=== PATIENT | female | born 1935 | race Caucasian/White ===

== ENCOUNTER 2017-01-03 19:57 | Emergency (ER) | payer OTHER ==
[~2017-01-03] VITALS: Ht 152.4 cm; Wt 45.4 kg
[2017-01-03 20:08] VITALS: BP_SYST 117
[2017-01-03] MEDS ORDERED: LORazepam 1 MG TABLET PO ONE (22:00)
[2017-01-03 22:10] VITALS: BP_SYST 117
== END 2017-01-03 22:10 | disposition home or self-care (01) ==
LOC: SED 19:57
DX: G47.00 Insomnia, unspecified (principal); F41.9 Anxiety disorder, unspecified; M54.30 Sciatica, unspecified side
CPT/HCPCS: 99283

== ENCOUNTER 2017-06-14 17:29 | Emergency (ER) | payer OTHER ==
[~2017-06-14] VITALS: Ht 152.4 cm; Wt 50.8 kg
[2017-06-14 17:30] VITALS: BP_SYST 111
[2017-06-14 19:58] VITALS: BP_SYST 114
== END 2017-06-14 19:58 | disposition home or self-care (01) ==
LOC: SED 17:29
DX: T23.212A Burn of second degree of left thumb (nail), initial encounter (principal); F41.9 Anxiety disorder, unspecified; M54.30 Sciatica, unspecified side; X16.XXXA Contact with hot heating appliances, radiators and pipes, initial encounter; Y93.89 Activity, other specified; Y92.89 Other specified places as the place of occurrence of the external cause; Y99.8 Other external cause status
CPT/HCPCS: 99284

== ENCOUNTER 2021-04-29 19:20 | Emergency (ER) | payer OTHER ==
[~2021-04-29] VITALS: Ht 152.4 cm; Wt 45.4 kg
[2021-04-29 19:28] VITALS: BP_SYST 143
--- NOTE | 2021-04-29 19:28 | NUR ---
Patient to ER bed 06 to gown for evaluation. Side rails up. Report given to BRUNA Maldonado
--- NOTE | 2021-04-29 19:35 | NUR ---
Pt brought self in due to s/p fall last night around 9 pm. Reports to ER with a laceration approx 5 cm to Left hand that she obtained from a fall at home and discoloration to Left eye. Pt denies any visual disturbances. Denies hitting head during fall and denies any LOC. Able to move left hand. VSS at this time. Appears in no acute distress.
[2021-04-29] MEDS ORDERED: DIPH-TET-PERTUS Vaccine 0.5 ML VIAL (ADACEL) I.M. ONE (20:00)
[2021-04-29] MEDS ORDERED: SULF1TAB48 PO (20:13)
[2021-04-29 20:16] LABS: BASOPHILS # (AUTO) 0.3 K/uL (0.0-0.2); BASOPHILS % (AUTO) 4.3 % (0.0-2.0); EOSINOPHILS # (AUTO) 0.2 K/uL (0.0-0.4); EOSINOPHILS % (AUTO) 3.3 % (0.0-4.0); HEMATOCRIT 41.6 % (36-48); HEMOGLOBIN 13.7 g/dL (12.0-16.0); LYMPHOCYTES # (AUTO) 1.7 K/uL (1.0-5.5); LYMPHOCYTES % (AUTO) 26.7 % (20.5-51.5); MEAN CORPUSCULAR HEMOGLOBIN 29 pg (27-31); MEAN CORPUSCULAR HGB CONC 33 % (32-36); MEAN CORPUSCULAR VOLUME 88 fL (79.0-98.0); MONOCYTES # (AUTO) 0.6 K/uL (0.0-1.0); MONOCYTES % (AUTO) 8.9 % (1.7-9.3); NEUTROPHILS # (AUTO) 3.7 K/uL (1.8-7.7); NEUTROPHILS % (AUTO) 56.8 % (40.0-70.0); PLATELET COUNT (AUTO) 375 K/uL (130-430); RED BLOOD CELL COUNT(AUTO) 4.76 MIL/uL (4.2-6.2); RED CELL DISTRIBUTION WIDTH 14.3 % (9.0-15.0); WHITE BLOOD COUNT (AUTO) 6.5 K/uL (4.8-10.8)
[2021-04-29] MEDS ORDERED: LIDOCAINE/EPI 1% 1:100000 20 ML VIAL INJ ONE ×2 (20:20→20:30)
[2021-04-29] MEDS ORDERED: SULFAMETHOXAZOLE/TRIMETHOPR DS 1 TABLET PO ONE (20:30)
--- NOTE | 2021-04-29 20:30 | NUR ---
Consent received for TDAP administration.
[2021-04-29 20:41] LABS: ANION GAP 7 (5-15); CALCIUM 9.7 mg/dL (8.4-11.0); CHLORIDE 101 mmol/L (98-107); CREATININE 0.68 mg/dL (0.55-1.30); GLUCOSE 98 mg/dL (70-99); POTASSIUM 4.2 mmol/L (3.5-5.1); SODIUM SERUM 139 mmol/L (136-145); UREA NITROGEN, BLOOD 16 mg/dL (8-21)
[2021-04-29 20:47] LABS: ALANINE AMINOTRANSFERASE 36 U/L (12-78); ALBUMIN 3.8 g/dL (3.4-4.8); ASPARTATE AMINOTRANSFERASE 31 U/L (10-37); TOTAL BILIRUBIN 0.1 mg/dL (0.0-1.0)
--- NOTE | 2021-04-29 22:16 | NUR ---
Patient given written and verbal discharge instructions and verbalizes understanding. ER MD discussed with patient the results and treatment provided. Patient in stable condition. ID arm band removed. Rx Bactrim DS sent to pharmacy of choice. Patient educated on pain management and to follow up with PMD.= Opportunity for questions provided and answered. Medication side effect fact sheet provided.
[2021-04-29 22:18] VITALS: BP_SYST 129
== END 2021-04-29 22:17 | disposition home or self-care (01) ==
LOC: SED 19:20
DX: S61.412A Laceration without foreign body of left hand, initial encounter (principal); E78.5 Hyperlipidemia, unspecified; G47.00 Insomnia, unspecified; F41.9 Anxiety disorder, unspecified; Z79.899 Other long term (current) drug therapy; W01.0XXA Fall on same level from slipping, tripping and stumbling without subsequent striking against object, initial encounter; Y93.89 Activity, other specified; Y92.89 Other specified places as the place of occurrence of the external cause; Y99.8 Other external cause status
CPT/HCPCS: 36415; 70450-TC; 71045; 72125-TC; 73140-TC; 76376; 80053; 83605; 83880; 84484; 85025; 87040; 90715; 93005; 99285

== ENCOUNTER 2022-03-20 12:09 | Inpatient (IN) | payer OTHER ==
[~2022-03-20] VITALS: Ht 157.5 cm; Wt 49.9 kg
[~2022-03-20 12:09] MED LIST: SULF1TAB48 PO
[2022-03-20 12:10] VITALS: BP_SYST 137
--- NOTE | 2022-03-20 12:10 | NUR ---
BROUGHT IN BY [facility], PLACED IN BED #5 AND TRIAGED. REPORT GIVEN TO DONNA
--- NOTE | 2022-03-20 12:15 | NUR ---
PT BIBA AWAKE AND CONFUSED. NO SOB . PT WAS FOUND LYING OUTSIDE IN THE YARD BY PARAMEDICS. PARAMEDICS STATED SHE MIGHT HAVE SPENT THE NIGHT OUTSIDE. PT RECTAL TEMP ON ARRIVAL 86.5. PT DENIES PAIN.
--- NOTE | 2022-03-20 12:15 | NUR ---
MD DR MUSE AT BEDSIDE
[2022-03-20] MEDS ORDERED: NACL 0.9% 1,000 ML IV ONE (12:30)
--- NOTE | 2022-03-20 12:43 | NUR ---
PAUL DUBOSE CALLED FOR STATUS UPDATE,
[2022-03-20 12:57] LABS: BASOPHILS # (AUTO) 0.1 K/uL (0.0-0.2); BASOPHILS % (AUTO) 0.3 % (0.0-2.0); EOSINOPHILS % (AUTO) 0.1 % (0.0-4.0); HEMATOCRIT 48.7 % (36-48); HEMOGLOBIN 15.9 g/dL (12.0-16.0); LYMPHOCYTES # (AUTO) 0.9 K/uL (1.0-5.5); MEAN CORPUSCULAR HEMOGLOBIN 29 pg (27-31); MEAN CORPUSCULAR HGB CONC 33 % (32-36); MEAN CORPUSCULAR VOLUME 88 fL (79.0-98.0); MONOCYTES # (AUTO) 0.9 K/uL (0.0-1.0); MONOCYTES % (AUTO) 4.8 % (1.7-9.3); NEUTROPHILS # (AUTO) 16.9 K/uL (1.8-7.7); NEUTROPHILS % (AUTO) 89.8 % (40.0-70.0); PLATELET COUNT (AUTO) 351 K/uL (130-430); RED BLOOD CELL COUNT(AUTO) 5.53 MIL/uL (4.2-6.2); RED CELL DISTRIBUTION WIDTH 14.2 % (9.0-15.0); WHITE BLOOD COUNT (AUTO) 18.8 K/uL (4.8-10.8)
[2022-03-20 13:19] LABS: ANION GAP 15 (5-15); CALCIUM 9.9 mg/dL (8.4-11.0); CHLORIDE 99 mmol/L (98-107); CREATININE 0.67 mg/dL (0.55-1.30); GLUCOSE 168 mg/dL (70-99); UREA NITROGEN, BLOOD 21 mg/dL (8-21)
[2022-03-20 13:20] LABS: INR 1.1 (0.8-1.2); PROTHROMBIN TIME 11.5 SECS (9.5-12.5)
[2022-03-20 13:26] LABS: ACETAMINOPHEN < 1 ug/mL (1-30); ALANINE AMINOTRANSFERASE 58 U/L (12-78); ALBUMIN 4.2 g/dL (3.4-4.8); ALCOHOL, BLOOD < 3 mg/dL (<10); ASPARTATE AMINOTRANSFERASE 94 U/L (10-37); LIPASE 54 U/L (73-393); TOTAL BILIRUBIN 0.8 mg/dL (0.0-1.0)
[2022-03-20] MEDS ORDERED: VANCOMYCIN HCL 1,000 MG in NS 250 ML IV ONE (13:45)
[2022-03-20] MEDS ORDERED: PIPERACILLIN/TAZO 3.375 GM in NS 50 ML IV ONE (13:45)
[2022-03-20 14:07] LABS: CKMB RELATIVE INDEX 1.9 (0.0-2.9); CREATINE KINASE MB 37.7 ng/mL (0-3.6)
[2022-03-20] MEDS ORDERED: PIPERACILLIN/TAZOBACTAM 3.375 GM/VIAL (ZOSYN) IV ONE (14:33)
[2022-03-20 14:50] LABS: BILIRUBIN,URINE NEGATIVE (NEGATIVE); BLOOD, URINE 1+ (NEGATIVE); CLARITY/URINE CLEAR (CLEAR); COLOR,URINE YELLOW (YELLOW); GLUCOSE,URINE 1+ (NEGATIVE); KETONES,URINE 2+ (NEGATIVE); LEUKOCYTE ESTERASE ,URINE NEGATIVE (NEGATIVE); NITRITE, URINE NEGATIVE (NEGATIVE); PROTEIN URINE 1+ (NEGATIVE); UROBILINOGEN,URINE 0.2 (0.2-1.0)
[2022-03-20 14:59] LABS: BACTERIA,URINE RARE /HPF (None Seen); HYALINE CASTS, URINE 0-10 /LPF (None Seen); MUCUS,URINE 1+ /LPF (None Seen); WBC,URINE 0-3 /HPF (0-3)
[2022-03-20 15:05] LABS: BARBITURATE, URINE NEGATIVE (NEG <=200); BENZODIAZEPINE, URINE NEGATIVE (NEG <=150); CANNABINOID, URINE NEGATIVE (NEG <=50); COCAINE, URINE NEGATIVE (NEG <=150); METHAMPHETAMINES SCREEN,URINE NEGATIVE (NEG <=500); OPIATE, URINE NEGATIVE (NEG <=100); PHENCYCLIDINE SCREEN,URINE NEGATIVE (NEG <=25); UR TRICYCLIC ANTIDEPRESSANTS NEGATIVE (NEG <=300); URINE AMPHETAMINE NEGATIVE (NEG <=500); URINE METHADONE NEGATIVE (NEG <=200); URINE OXYCODONE SCREEN NEGATIVE (NEG <=100); URINE PROPOXYPHENE SCREEN NEGATIVE (NEG <=300)
[2022-03-20] MEDS ORDERED: VANCOMYCIN HCL 1000 MG/VIAL IV ONE (15:08)
--- NOTE | 2022-03-20 15:12 | NUR ---
FAMILY CONTACT GRACY CHIN (SON) [phone]
--- NOTE | 2022-03-20 15:30 | NUR ---
at bedside examining patient.
[2022-03-20] MEDS ORDERED: ONDANSETRON HCL 4 MG/2 ML VIAL IVP PRN (16:00)
[2022-03-20] MEDS ORDERED: ESCI20TA PO (16:40)
[2022-03-20] MEDS ORDERED: CLON1TAB12 PO (16:40)
[2022-03-20] MEDS ORDERED: ATOR40TA68 PO (16:40)
[2022-03-20] MEDS ORDERED: SOLI10TA2 PO (16:40)
[2022-03-20] MEDS ORDERED: QUET50TA PO (16:40)
[2022-03-20] MEDS ORDERED: TRAM50TA2 PO (16:40)
--- NOTE | 2022-03-20 16:58 | NUR ---
Admit bed requested Patient will be admitted to care of . Admitted to ICU unit. Diagnosis SERVE SEPSIS Inpatient (Yes or No) YES Observation (Yes or No) NO Orientation concerns or request close to nursing station (Yes or No) NO Covid Status NEG On vent or bipap NO Isolation requirements NO Needs a sitter NO From Home (Yes or if No enter name of facility) HOME Requires Dialysis (Yes or No) NO Med Rec Completed (Yes of No) YES
--- NOTE | 2022-03-20 17:00 | NUR ---
PT TEMP 96.9
[2022-03-20] MEDS: NACL 0.9% 1,000 ML IV SCH (17:27)
--- NOTE | 2022-03-20 19:30 | NUR ---
Pt report received. Pt alert, responsive, confused. NS infusing at 100 mL/hr to patent and secure PIV RHA. VSS, NAD.
--- NOTE | 2022-03-20 19:33 | NUR ---
COVID AND MRSA SAMPLE COLLECTED AND SENT TO LAB
--- NOTE | 2022-03-20 20:00 | NUR ---
Pt incontinent of urine. Pt cleaned, fresh gown and linens applied. VSS, NAD. Denies c/o pain or discomfort and no needs verbalized.
[2022-03-20] MEDS: PIPERACILLIN/TAZO 2.25G/DEX-IS 50 ML IV SCH (20:55)
--- NOTE | 2022-03-20 21:25 | NUR ---
Patient will be admitted to care of Dr. Alcala. Admitted to ICU unit. Will go to room 6. Complete and up to date summary report printed. SBAR report to be given at bedside with opportunity for questions.
[2022-03-20 21:30] VITALS: BP_SYST 102
[2022-03-20 22:00] VITALS: BP_SYST 105
[2022-03-20 23:00] VITALS: BP_SYST 108
--- NOTE | 2022-03-20 23:19 | NUR ---
CONSULTATION PAGED/CALLED Reason for Consultation: sev sepsis Person Who was Notified: Laura Consulting Physician: Anders Firefighting Equipment Specialist Specialty: infectious disease Ordering Physician: Cari
--- NOTE | 2022-03-20 23:20 | NUR ---
CONSULTATION PAGED/CALLED Reason for Consultation: sev sepsis Person Who was Notified: Aileen Consulting Physician: Hafsa Patient Day Coordinator Specialty: CV Ordering Physician: Cari
--- NOTE | 2022-03-20 23:21 | NUR ---
CONSULTATION PAGED/CALLED Reason for Consultation: sev sepsis Person Who was Notified: Gregory Consulting Physician: Radha Director Translation Specialty: Pulm Ordering Physician: Cari
[2022-03-21] VITALS (18 sets, daily range): BP systolic 107–158
[2022-03-21] MEDS: NACL 0.9% 1,000 ML IV SCH ×2 (02:55→13:57)
[2022-03-21] MEDS: PIPERACILLIN/TAZO 2.25G/DEX-IS 50 ML IV SCH ×4 (02:56→22:02)
[2022-03-21 06:10] LABS: HEMATOCRIT 37.3 % (36-48); HEMOGLOBIN 12.4 g/dL (12.0-16.0); MEAN CORPUSCULAR HEMOGLOBIN 29 pg (27-31); MEAN CORPUSCULAR HGB CONC 33 % (32-36); MEAN CORPUSCULAR VOLUME 88 fL (79.0-98.0); MONOCYTES # (AUTO) 1.1 K/uL (0.0-1.0); MONOCYTES % (AUTO) 5.8 % (1.7-9.3); NEUTROPHILS # (AUTO) 16.8 K/uL (1.8-7.7); NEUTROPHILS % (AUTO) 89.2 % (40.0-70.0); PLATELET COUNT (AUTO) 287 K/uL (130-430); RED BLOOD CELL COUNT(AUTO) 4.26 MIL/uL (4.2-6.2); RED CELL DISTRIBUTION WIDTH 14.3 % (9.0-15.0); WHITE BLOOD COUNT (AUTO) 18.9 K/uL (4.8-10.8)
[2022-03-21 06:50] LABS: ANION GAP 11 (5-15); CALCIUM 8.5 mg/dL (8.4-11.0); CHLORIDE 106 mmol/L (98-107); CREATININE 0.73 mg/dL (0.55-1.30); GLUCOSE 113 mg/dL (70-99); UREA NITROGEN, BLOOD 18 mg/dL (8-21)
[2022-03-21 06:59] LABS: ALANINE AMINOTRANSFERASE 66 U/L (12-78); ALBUMIN 3.1 g/dL (3.4-4.8); ASPARTATE AMINOTRANSFERASE 129 U/L (10-37); TOTAL BILIRUBIN 0.8 mg/dL (0.0-1.0)
[2022-03-21 07:41] LABS: CREATINE KINASE MB 33.2 ng/mL (0-3.6)
--- NOTE | 2022-03-21 09:30 | NUR ---
patient incontinent bowel and bladder, good pericare provided. turn and reposition with pillow support.
--- NOTE | 2022-03-21 11:15 | NUR ---
per monitoring manager MD cesar made rounds but didn't see him. need orders. paged exchange s/w severo answering service. waiting to callback.
[2022-03-21] MEDS ORDERED: POTASSIUM CHLORIDE 20 MEQ TAB.PRT.SR PO ONE (11:45)
--- NOTE | 2022-03-21 12:00 | NUR ---
frequent episode of forgetful. reorientation provided. fall and safety precaution initiated.
[2022-03-21] MEDS ORDERED: VANCOMYCIN HCL 750 MG in NS 250 ML IV SCH (14:00)
--- NOTE | 2022-03-21 14:15 | NUR ---
pulmo consult: seen and examine by dr. rahman with new order received. noted and carried out
--- NOTE | 2022-03-21 15:00 | NUR ---
Patient generalized bruises during admission,no photos noted, per charge nurse and director dorita statement no need to take photos unless it's pressure injury.
--- NOTE | 2022-03-21 16:00 | NUR ---
son ( chato) is here, updated patient current condition and poc.
--- NOTE | 2022-03-21 16:30 | NUR ---
patient incontinent of bowel and bladder,had large bowel ( yellow) color noted, good pericare provided. turn and reposition, sponge bath provided. oral care ( brush teeth).
--- NOTE | 2022-03-21 18:10 | NUR ---
Transfer patient to [facility]. room 121A, patient stable condition, bedside given to Claudette MCFARLAND. patient son ( chato) informed about the transfer. all needs mets. belongings with patient.
--- NOTE | 2022-03-21 18:41 | NUR ---
Received patient from ICU, awake ,alert and oriented x2. Denies any pain or discomfort presently. Patient on media monitor showing Sinus rhythm. Vital signs obtained, see flow sheet. Patient made comfortable in bed, call light within reach. Encouraged to call for assistance or for any discomfort as needed. Will endorse to incoming nurse.
--- NOTE | 2022-03-21 19:20 | NUR ---
OPENING NOTE PT IS SITTING IN BED EATING DINNER. NO APPARENT SIGNS OF DISTRESS NOTED AT THIS TIME. BED IS IN LOWEST POSITION WITH SAFETY PRECAUTIONS IN PLACE. IV FLUIDS RUNNING ORDERED. CALL LIGHT WITHIN REACH. VSS.
--- NOTE | 2022-03-21 19:50 | NUR ---
PTS SON, GRACY, BEDSIDE. SPOKE W/ SON, HE MEDICAL POWER OF DIRECTOR [employer] AND PTS OTHER SON, ANDREW IS LEGAL POWER OF [employer]OR [employer]. ANSWERED ALL QUESTIONS AT THIS TIME.
[2022-03-21] MEDS: ATORVASTATIN 20 MG TABLET PO SCH (22:16)
[2022-03-21] MEDS: traMADol HCL HCL 50 MG TABLET (ULTRAM) PO PRN (22:16)
--- NOTE | 2022-03-21 22:40 | NUR ---
ASSISTED PT TO BATHROOM PT VERY WEAK AND NEEDS GREAT ASSIST. TIMMY RUSSO ASSISTED NURSE TO GET PATIENT BACK INTO BED.
[2022-03-22] MEDS: NACL 0.9% 1,000 ML IV SCH ×2 (00:45→13:18)
--- NOTE | 2022-03-22 00:50 | NUR ---
ROUNDS PT IS LYING IN BED WITH EYES OPEN. NO APPARENT DISTRESS. PT DENIES ANY PAIN AT THIS TIME. ALL NEEDS MET.
[2022-03-22 01:42] VITALS: BP_SYST 124
--- NOTE | 2022-03-22 02:45 | NUR ---
ROUNDS PT UP TO BEDSIDE COMMODE. ALL LINENS CHANGED. NEW GOWN. PT ASSISTED BACK INTO BED.
[2022-03-22] MEDS: PIPERACILLIN/TAZO 2.25G/DEX-IS 50 ML IV SCH ×4 (02:51→20:04)
[2022-03-22 06:17] LABS: BASOPHILS % (AUTO) 0.2 % (0.0-2.0); EOSINOPHILS # (AUTO) 0.2 K/uL (0.0-0.4); EOSINOPHILS % (AUTO) 1.3 % (0.0-4.0); HEMATOCRIT 34.7 % (36-48); HEMOGLOBIN 11.9 g/dL (12.0-16.0); LYMPHOCYTES # (AUTO) 1.5 K/uL (1.0-5.5); LYMPHOCYTES % (AUTO) 10.6 % (20.5-51.5); MEAN CORPUSCULAR HEMOGLOBIN 30 pg (27-31); MEAN CORPUSCULAR HGB CONC 34 % (32-36); MEAN CORPUSCULAR VOLUME 86 fL (79.0-98.0); MONOCYTES # (AUTO) 0.8 K/uL (0.0-1.0); MONOCYTES % (AUTO) 5.6 % (1.7-9.3); NEUTROPHILS # (AUTO) 11.8 K/uL (1.8-7.7); NEUTROPHILS % (AUTO) 82.3 % (40.0-70.0); PLATELET COUNT (AUTO) 256 K/uL (130-430); RED BLOOD CELL COUNT(AUTO) 4.04 MIL/uL (4.2-6.2); RED CELL DISTRIBUTION WIDTH 14.4 % (9.0-15.0); WHITE BLOOD COUNT (AUTO) 14.3 K/uL (4.8-10.8)
--- NOTE | 2022-03-22 06:50 | NUR ---
CLOSING NOTE PT IS SEMI FOWLERS IN BED WITH EYES CLOSED. NO APPARENT SIGNS OF DISTRESS NOTED AT THIS TIME. BED IS IN LOWEST POSITION WITH FALL AND SAFETY PRECAUTIONS IN PLACE. IV FLUIDS RUNNING ORDERED. CALL LIGHT WITHIN REACH.
[2022-03-22 08:00] VITALS: BP_SYST 126
[2022-03-22 08:19] LABS: ANION GAP 8 (5-15); CALCIUM 8.3 mg/dL (8.4-11.0); CHLORIDE 109 mmol/L (98-107); CREATININE 0.58 mg/dL (0.55-1.30); GLUCOSE 125 mg/dL (70-99); UREA NITROGEN, BLOOD 13 mg/dL (8-21)
[2022-03-22] MEDS: CITALOPRAM HYDROBROMIDE 20 MG TABLET PO SCH (08:35)
[2022-03-22] MEDS: QUEtiapine FUMARATE 25 MG TABLET PO SCH (08:35)
[2022-03-22] MEDS ORDERED: ESCITALOPRAM OXALATE 10 MG TABLET PO SCH (09:00)
[2022-03-22 09:57] LABS: CKMB RELATIVE INDEX 0.8 (0.0-2.9); CREATINE KINASE MB 14.1 ng/mL (0-3.6)
[2022-03-22 12:00] VITALS: BP_SYST 126
--- NOTE | 2022-03-22 13:28 | NUR ---
Beader Tender GENERAL ROAD SUPERVISOR received a referral to see pt. and family as they has some questions. GENERAL ROAD SUPERVISOR called and spoke to pts, son, Jon who stated he is good, all questions have been answered. He and family are working on trying to find either an assisted living or someone to come help care for pt. at home. GENERAL ROAD SUPERVISOR will leave some resources for family at front dest . Jon, son was thankful and will greens picker. GENERAL ROAD SUPERVISOR will remain available as needed.
[2022-03-22] MEDS ORDERED: POTASSIUM CHLORIDE 20 MEQ/PKT PACKET PO ONE (14:00)
--- NOTE | 2022-03-22 14:29 | NUR ---
Dietitian Recommendations * Continue mechanical soft * Ordered: Ensure HP BID * Send snacks in between meals; RD entered in [employer] GS, MPH, RD Please refer to RD Assessment for further details. Thanks! Addendum: 03/22/22 at [address] Amended: Links added.
[2022-03-22] MEDS ORDERED: ASPIRIN 81 MG TAB.CHEW PO ONE (14:30)
[2022-03-22 17:17] VITALS: BP_SYST 119
--- NOTE | 2022-03-22 18:43 | NUR ---
SHIFT NOTES 07A-7P: 0730AM: PATIENT IS RESTING IN BED QUIETLY. AAOX2 TO PERSON AND PLACE WITH EPISODE OF FORGETFULNESS. ABLE TO MAKE NEEDS KNOWN. NO ADDITIONAL DISTRESS NOTED. EXPLAINED POC AND PATIENT VERBALIZED UNDERSTANDING BUT NEED REINFORCEMENT. BED IN LOW AND LOCK POSITION. BED ALARM ON. CALL LIGHT AND BEDSIDE TABLE WITHIN REACH. STABLE CONDITION AT THIS TIME. 0900AM: ENCOURAGE PATIENT TO EAT. NOTED POOR PO INTAKE AND APPETITE. 1230PM: TRIED TO CONVINCED PATIENT TO EAT. PATIENT STATES, SHE IS NOT HUNGRY. 1830: TRIED TO FEED PATIENT. PATIENT ATE 40%. 1840: PATIENT IS RESTING IN BED TALKING TO HER SON ON THE PHONE. NO ADDITIONAL DISTRESS NOTED. HOURLY ROUND MADE THROUGHOUT THE SHIFT. ALL NEEDS MET. STABLE CONDITION AT THIS TIME.
[2022-03-22 19:55] VITALS: BP_SYST 144
[2022-03-22] MEDS: ATORVASTATIN 20 MG TABLET PO SCH (20:10)
--- NOTE | 2022-03-22 21:00 | NUR ---
Received Critical report from lab- Troponin 94. Called Dr Samuel and notified the result. No new order.
[2022-03-23 00:04] VITALS: BP_SYST 163
[2022-03-23] MEDS: NACL 0.9% 1,000 ML IV SCH ×2 (00:08→14:16)
[2022-03-23] MEDS: PIPERACILLIN/TAZO 2.25G/DEX-IS 50 ML IV SCH ×2 (01:29→09:42)
--- NOTE | 2022-03-23 05:25 | NUR ---
Closing note- pt awake and oriented x 2. Incontinent of urine. Kept clean and dry. ultiple bruises on left abdomen, pelvic area, shoulder knee and leg. Also abrasions on left elbow and knee. Addendum: 03/23/22 at 0530 by [facility], BRUNA MCFARLAND Tele- NSR. Room air. NS at 100 ml/hr. Poor appetite. Encouraged oral intake. cont SCD on ble.
[2022-03-23 08:00] VITALS: BP_SYST 109
[2022-03-23] MEDS: ASPIRIN 81 MG TAB.CHEW PO SCH (09:42)
[2022-03-23] MEDS: QUEtiapine FUMARATE 25 MG TABLET PO SCH (09:43)
[2022-03-23] MEDS: CITALOPRAM HYDROBROMIDE 20 MG TABLET PO SCH (09:43)
[2022-03-23 10:02] LABS: BASOPHILS # (AUTO) 0.1 K/uL (0.0-0.2); BASOPHILS % (AUTO) 0.7 % (0.0-2.0); EOSINOPHILS # (AUTO) 0.4 K/uL (0.0-0.4); EOSINOPHILS % (AUTO) 3.7 % (0.0-4.0); HEMATOCRIT 36.9 % (36-48); HEMOGLOBIN 12.4 g/dL (12.0-16.0); LYMPHOCYTES # (AUTO) 1.1 K/uL (1.0-5.5); LYMPHOCYTES % (AUTO) 11.8 % (20.5-51.5); MEAN CORPUSCULAR HEMOGLOBIN 30 pg (27-31); MEAN CORPUSCULAR HGB CONC 34 % (32-36); MEAN CORPUSCULAR VOLUME 88 fL (79.0-98.0); MONOCYTES # (AUTO) 0.7 K/uL (0.0-1.0); NEUTROPHILS # (AUTO) 7.5 K/uL (1.8-7.7); NEUTROPHILS % (AUTO) 76.8 % (40.0-70.0); PLATELET COUNT (AUTO) 269 K/uL (130-430); RED BLOOD CELL COUNT(AUTO) 4.18 MIL/uL (4.2-6.2); RED CELL DISTRIBUTION WIDTH 14.6 % (9.0-15.0)
[2022-03-23 10:06] LABS: WHITE BLOOD COUNT (AUTO) 9.7 K/uL (4.8-10.8)
[2022-03-23 10:21] LABS: ANION GAP 9 (5-15); CALCIUM 8.4 mg/dL (8.4-11.0); CHLORIDE 109 mmol/L (98-107); CREATININE 0.58 mg/dL (0.55-1.30); GLUCOSE 121 mg/dL (70-99); UREA NITROGEN, BLOOD 10 mg/dL (8-21)
--- NOTE | 2022-03-23 10:45 | NUR ---
NOTES; FAMILY AT BEDSIDE, ANSWERED ALL QUESTIONS. WAS NOTIFIED THAT SHE IS DNR FROM NOW ON.
[2022-03-23] MEDS ORDERED: AMOX-423 PO (11:04)
[2022-03-23 11:49] VITALS: BP_SYST 138
--- NOTE | 2022-03-23 13:34 | NUR ---
NOTES; CALLED DR. BENNETT REGARDING D/C INSTRUCTION. TOLD THAT PT WALKED 30FEET; THINKS PT COULD GO A/L OR HOME, NOT SNF.
--- NOTE | 2022-03-23 16:00 | NUR ---
PAUL REQUESTED 601 FORM FROM C/M. NOTIFIED CMarcelo MCCOY. NADINE IS NOT FAMILIAR WITH 601 FORM. NADINE PROVIDED A LETTER THAT IS IN PT'S CHART Addendum: 03/23/22 at 1846 by Kelton Hi RN 602*
[2022-03-23 18:21] VITALS: BP_SYST 138
--- NOTE | 2022-03-23 18:46 | NUR ---
CLOSING NOTE; PT RESTING IN BED. IVF RUNNING ORDERED. NO IV INFILTRATION OR INFECTION NOTED. BED IS LOCKED AND AT LOW POSITION. SAFETY PRECAUTION IN PLACE. ENCOURAGED TO USE CALL LIGHT FOR ASSISTANCE. WILL ENDORSE CARE TO CHECK WRITING MACHINE OPERATOR NURSE.
[2022-03-23 19:00] VITALS: BP_SYST 134
--- NOTE | 2022-03-23 20:54 | NUR ---
PATIENT IN LAYING IN BED AWAKE ALERT AND RESPONSIVE. PATIENT RESTING. STABLE AND AFEBRILE. A&O X2 VERBALLY RESPONSIVE. FORGETFUL. ADMITTED WITH DX: SEVERE SEPSIS AND PNA. HX: DEMENTIA, HLD, ANXIETY, AND INSOMNIA. BREATHING EVEN AND NON LABORED. NO SOB/ DYPSNEA. NO COUGHING NOTED AT THIS TIME. O2 @96% RA. CONTINUED ON IVF ORDERED. CONTINUED ON IV ATB ROCEPHIN FOR PNA. NO ADVERSE REACTIONS FROM ATB THERAPY. IV SITE INTACT AND PATENT. IV DRESSING CLEAN DRY AND INTACT. INCONTINENT B&B PATIENT KEPT CLEAN AND DRY. PATIENT TURNED AND REPOSITIONED Q2H. ALL NEEDS MET. SAFTEY MEASURES OBSERVED. PATIENT CLOSE TO NURSING STATION. BED LOCKED IN LOWEST POSITION. FREQUENT VISUAL CHECKS MADE. CONTINUED ON TELEMETRY MONITORING. NO CHANGES IN HR/ RHYTHM. PT DENIES PAIN. PATIENT DENIES CP. 0/10 BUSTOS MÁRQUEZ FACES PAIN SCALE. CALL LIGHT IN REACH. BED LOCKED IN LOWEST POSITION. PATIENT REMINDED TO USE CALL LIGHT IN NEED OF ASSISTANCE.
[2022-03-23] MEDS: ATORVASTATIN 20 MG TABLET PO SCH (21:17)
[2022-03-24] VITALS: BP_SYST 135
[2022-03-24] MEDS: NACL 0.9% 1,000 ML IV SCH ×3 (01:13→21:00)
[2022-03-24 04:00] VITALS: BP_SYST 126
--- NOTE | 2022-03-24 06:58 | NUR ---
FINAL ROUNDS MADE PATIENT RESTING IN BED EASILY AWAKENED UPON AROUSAL. VERBALLY RESPONSIVE. STABLE AND AFEBRILE. NO CHANGES IN CONDITION SAME BASELINE. BREATHING EVEN AND RESPONSIVE. NO SOB OR DYPSNEA. NO COUGH NOTED. DENIES PAIN 0/10 BUSTOS MÁRQUEZ FACES SCALE. NO S/S ANXIETY NOTED. VS WNL. SAFETY MEASURES OBSERVED. PATIENT CLEAN AND DRY. INCONTINENT B&B. IV PATENT AND DRSG CLEAN DRY AND INTACT. IVF RUNNING ORDERED. NO A/R FROM IVF THERAPY. ASSISTED WITH PERICARE PARTIAL ASSIST. BILATERAL SOFT WRIST RESTRAINTS IN PLACE. TELEMETRY MONITORING CONTINUED NO CHANGES FROM BASELINE HEART RHYTHM. CALL LIGHT IN REACH. BED LOCKED IN LOWEST POSITION. REPORT GIVEN TO ONCOMING NURSE. Addendum: 03/24/22 at 0700 by [employer] BRUNA Meraz RN ERROR NO BILATERAL WRIST RESTRAINTS Addendum: 03/24/22 at 0701 by Latoya Meraz RN RN ERROR PATIENT DOES NOT HAVE RESTRAINTS.
[2022-03-24 08:00] VITALS: BP_SYST 162
[2022-03-24] MEDS: QUEtiapine FUMARATE 25 MG TABLET PO SCH (08:30)
[2022-03-24] MEDS: ASPIRIN 81 MG TAB.CHEW PO SCH (08:30)
[2022-03-24] MEDS: CITALOPRAM HYDROBROMIDE 20 MG TABLET PO SCH (08:31)
--- NOTE | 2022-03-24 10:52 | NUR ---
AT BEDSIDE, ASSESSING PT
[2022-03-24] MEDS ORDERED: POTASSIUM CHLORIDE 20 MEQ TAB.PRT.SR PO ONE (11:00)
[2022-03-24 11:31] VITALS: BP_SYST 154
--- NOTE | 2022-03-24 13:56 | NUR ---
ENCOURAGED PT TO WALK WITH THIS NURSE. PT SAYS SHE DOES NOT FEEL LIKE TO WALK. WILL CONT TO ENCOURAGE HER TO WALK. FAMILY AT BEDSIDE.
--- NOTE | 2022-03-24 13:57 | NUR ---
GRACY (SON) CALLED, ALL QUESTIONS ANSWERED
--- NOTE | 2022-03-24 15:30 | NUR ---
NOTES; REILLY CEE DTR, CALLED AND SPOKE WITH PT OVER THE PHONE. ALL QUESTIONS ANSWERED.
[2022-03-24 17:14] VITALS: BP_SYST 137
--- NOTE | 2022-03-24 18:15 | NUR ---
NOTES; TAYLOR (SON) WANTS TO TALK TO THE PT. BORROWED NURSE'S PHONE FOR A FEW MINUTES.
--- NOTE | 2022-03-24 19:30 | NUR ---
CLOSING NOTE PT RESTING IN BED WITH NON-LABORED AND EVEN BREATHING. IVF RUNNING ORDERED. NO IV INFILTRATION OR INFECTION NOTED. BED IS LOCKED AND AT LOW POSITION. CALL LIGHT WITHIN REACH. ENCOURAGED TO USE CALL LIGHT FOR ASSISTANCE. SAFETY PRECAUTION IN PLACE. ENDORSED CARE TO FOLDER TIER NURSE.
[2022-03-24 20:00] VITALS: BP_SYST 155
[2022-03-24] MEDS: ATORVASTATIN 20 MG TABLET PO SCH (20:57)
[2022-03-24] MEDS: traMADol HCL HCL 50 MG TABLET (ULTRAM) PO PRN (20:57)
[2022-03-24] MEDS: TEMAZEPAM 15 MG CAPSULE PO PRN (22:11)
[2022-03-25] VITALS: BP_SYST 162
[2022-03-25 04:00] VITALS: BP_SYST 155
[2022-03-25] MEDS: NACL 0.9% 1,000 ML IV SCH ×2 (06:47→18:31)
[2022-03-25 08:00] VITALS: BP_SYST 157
--- NOTE | 2022-03-25 08:00 | NUR ---
OPENING NOTES PATIENT IS AOX3. NO SS OF DISTRESS NOTED. BREATHING IS EVEN AND NONLABORED, ON ROOM AIR. VITAL SIGNS OBTAINED, DOCUMENTED. PATIENT DENIES PAIN. NO SOB NOTED. PATIENT IS EATING BREAKFAST. IV PATENT. IVF RUNNING. BED IS LOCKED, ALARM ON, AND AT LOWEST POSITION. MIKE LIGHT WITHIN EACH.
[2022-03-25] MEDS: CITALOPRAM HYDROBROMIDE 20 MG TABLET PO SCH (09:25)
[2022-03-25] MEDS: QUEtiapine FUMARATE 25 MG TABLET PO SCH (09:25)
[2022-03-25] MEDS: ASPIRIN 81 MG TAB.CHEW PO SCH (09:25)
--- NOTE | 2022-03-25 10:00 | NUR ---
Notes Patient has been cleaned and linens changed.No ss of distress noted. Wound care done. Patient is resting. IVF running. Iv patent. Bed is locked, alarm on and at lowest position. Call light within reach.
--- NOTE | 2022-03-25 11:21 | NUR ---
MOOKIE Braden Escobar is POA. His number is .For any consents and updates call this number. Son at bedside with patient. Addendum: 03/25/22 at 1126 by Trudy Thomas LVN Notes Braden Escobar is POA. His number is .For any consents and updates call this number. Patient just finished walking with PT. Patient back in bed. Son at bedside with patient. Safety precautions in place and call light within reach.
[2022-03-25 12:00] VITALS: BP_SYST 130
--- NOTE | 2022-03-25 13:36 | NUR ---
Weighing Station Operator TAPE KELLER OPERATOR recevied a message stating son wanted to speak to TAPE KELLER OPERATOR re. a "602 form". TAPE KELLER OPERATOR called pts. son, Jon who stated he is trying to get his mom/pt into a facility called [facility]. This facility is requesting the form filled out to help them know the pts. needs such as PT and her mental health status. Dr. Vargas who has agreed to help him with the mental health part of this form and has set up a video conference with pt. on 04/08. TAPE KELLER OPERATOR has made copies of the PT for Jon and left them in the front. Jon will come to pick them up. TAPE KELLER OPERATOR will remain available as needed.
--- NOTE | 2022-03-25 13:44 | NUR ---
NOTES PATIENT IS EATING LUNCH. DENIES PAIN. NO SS OF DISTRESS NOTED. NO SOB NOTED. ALL SAFETY PRECAUTIONS IN PLACE. BED IS LOCKED, ALARM ON, AND AT LOWEST POSITION. CALL LIGHT WITHIN REACH.
[2022-03-25 16:00] VITALS: BP_SYST 141
[2022-03-25 16:26] LABS: ANION GAP 9 (5-15); CALCIUM 8.9 mg/dL (8.4-11.0); CHLORIDE 107 mmol/L (98-107); CREATININE 0.53 mg/dL (0.55-1.30); GLUCOSE 121 mg/dL (70-99); UREA NITROGEN, BLOOD 17 mg/dL (8-21)
[2022-03-25 16:53] LABS: CKMB RELATIVE INDEX 0.6 (0.0-2.9); CREATINE KINASE MB 1.7 ng/mL (0-3.6)
[2022-03-25] MEDS ORDERED: POTASSIUM CHLORIDE 20 MEQ TAB.PRT.SR PO ONE (17:15)
--- NOTE | 2022-03-25 17:20 | NUR ---
NOTES PATIENT HAS BEEN CLEANED AND REPOSITION. NO SS OF DISTRESS NOTED. NO FACIAL GRIMACE NOTED. BED IS LOCKED, ALARM ON, AND AT LOWEST POSITION. CALL LIGHT WITHIN REACH.
--- NOTE | 2022-03-25 19:42 | NUR ---
CLOSING NOTES PATIENT IS EATING DINNER,. NO SS OF DISTRESS NOTED. BREATHING IS EVEN AND NONLABORED, ON ROOM AIR. PATIENT DENIES PAIN. IVF RUNNING. IV PATENT. PATIENT IS STABLE. ALL NEEDS MET. BED IS LOCKED, ALARM ON, AND AT LOWEST POSITION. CALL LIGHT WITHIN REACH.
--- NOTE | 2022-03-25 19:45 | NUR ---
PHYSICAL THERAPY CO-SIGN The Physical Therapy Progress Notes documented by Grocery Clerk Stocking have been reviewed. Reviewed/Co-Signed by: Jayden Kelsey Documentation Done by:LAMAR PAZ Addendum: 03/25/22 at 1946 by Jayden Kelsey PT Amended: Links added.
[2022-03-25 21:00] VITALS: BP_SYST 158
[2022-03-25] MEDS: ATORVASTATIN 20 MG TABLET PO SCH (21:00)
[2022-03-26 04:00] VITALS: BP_SYST 157
[2022-03-26] MEDS: NACL 0.9% 1,000 ML IV SCH ×3 (04:20→17:47)
[2022-03-26 06:41] LABS: BASOPHILS # (AUTO) 0.1 K/uL (0.0-0.2); BASOPHILS % (AUTO) 1.2 % (0.0-2.0); EOSINOPHILS # (AUTO) 0.5 K/uL (0.0-0.4); HEMATOCRIT 38.8 % (36-48); HEMOGLOBIN 13.2 g/dL (12.0-16.0); LYMPHOCYTES # (AUTO) 1.3 K/uL (1.0-5.5); LYMPHOCYTES % (AUTO) 15.5 % (20.5-51.5); MEAN CORPUSCULAR HEMOGLOBIN 30 pg (27-31); MEAN CORPUSCULAR HGB CONC 34 % (32-36); MEAN CORPUSCULAR VOLUME 88 fL (79.0-98.0); MONOCYTES # (AUTO) 0.9 K/uL (0.0-1.0); MONOCYTES % (AUTO) 11.2 % (1.7-9.3); NEUTROPHILS # (AUTO) 5.5 K/uL (1.8-7.7); NEUTROPHILS % (AUTO) 66.1 % (40.0-70.0); PLATELET COUNT (AUTO) 309 K/uL (130-430); RED BLOOD CELL COUNT(AUTO) 4.42 MIL/uL (4.2-6.2); RED CELL DISTRIBUTION WIDTH 14.9 % (9.0-15.0); WHITE BLOOD COUNT (AUTO) 8.4 K/uL (4.8-10.8)
[2022-03-26 06:55] LABS: ANION GAP 7 (5-15); CALCIUM 8.8 mg/dL (8.4-11.0); CHLORIDE 108 mmol/L (98-107); CREATININE 0.54 mg/dL (0.55-1.30); GLUCOSE 120 mg/dL (70-99); UREA NITROGEN, BLOOD 10 mg/dL (8-21)
[2022-03-26 08:00] VITALS: BP_SYST 159
--- NOTE | 2022-03-26 08:00 | NUR ---
Opening Notes Patient is AOx3. Breathing is even and nonlabored, on room air. No ss of distress noted. Patient denies pain. No SOB noted. IV patent. IVF running. Vital signs obtained, as documented. Bed is locked, alarm on, and at lowest position. Call light within reach.
[2022-03-26] MEDS: ASPIRIN 81 MG TAB.CHEW PO SCH (11:02)
[2022-03-26] MEDS: QUEtiapine FUMARATE 25 MG TABLET PO SCH (11:02)
[2022-03-26] MEDS: CITALOPRAM HYDROBROMIDE 20 MG TABLET PO SCH (11:02)
[2022-03-26 11:44] VITALS: BP_SYST 134
--- NOTE | 2022-03-26 12:40 | NUR ---
Notes Patient refused to work with physical therapy. Stated, "feel tired, I don't want to, I want to sleep." Patient denies pain. No SOB noted. IV patent. IVF running. Wound care done. Bed is locked, alarm on, and at lowest position. Call light within reach.
--- NOTE | 2022-03-26 12:45 | NUR ---
PATIENT REFUSED PT TREATMENT DESPITE MAX ENCOURAGEMENT FROM RN AND THERAPIST. PATIENT STATES SHE HAD A BAD NIGHT AND WAS TIRED.
--- NOTE | 2022-03-26 15:15 | NUR ---
MD Dr. Garcia saw patient at bedside. aware of potassium level 3.3. New Orders received.
[2022-03-26] MEDS ORDERED: POTASSIUM CHLORIDE 20 MEQ TAB.PRT.SR PO ONE (15:45)
--- NOTE | 2022-03-26 16:30 | NUR ---
Notes Patient is resting, eyes closed. appears to be asleep. No ss of distress noted. No facial grimace. IVF running. All safety precautions in place and call light within reach.
[2022-03-26 16:56] VITALS: BP_SYST 140
--- NOTE | 2022-03-26 18:54 | NUR ---
closing notes Patient is resting, calm and, eating dinner. No ss of distress noted. Breathing is even and nonlabored, on room air. Denies SOB. Denies pain. IVF running. Iv patent. Patient is stable. All needs met. Bed is locked, alarm on, and at lowest position. Call light within reach.
[2022-03-26 20:00] VITALS: BP_SYST 154
--- NOTE | 2022-03-26 20:00 | NUR ---
Opening notes Pt AAOx3, no s/s distress, watching TV. IVF infusing at ordered rate L. wrist no s/s infiltration. Bed low, locked, siderails up x3, alarm on. To monitor.
[2022-03-26] MEDS: ATORVASTATIN 20 MG TABLET PO SCH (20:59)
[2022-03-26] MEDS: TEMAZEPAM 15 MG CAPSULE PO PRN (21:28)
[2022-03-27 01:22] VITALS: BP_SYST 141
[2022-03-27] MEDS: NACL 0.9% 1,000 ML IV SCH (03:04)
--- NOTE | 2022-03-27 03:04 | NUR ---
Rounds Pt awake, resting in bed, no s/s distress noted. IV bag replaced. Call light within reach. Bed low, locked, siderails up x3, alarm on. To monitor.
--- NOTE | 2022-03-27 06:15 | NUR ---
Closing notes Pt AAOx3, no s/s distress or discomfort noted. IVF infusing at ordered rate L. wrist no s/s infiltration. Bed low, locked, siderails up x3, alarm on. To endorse to AM nurse.
--- NOTE | 2022-03-27 07:45 | NUR ---
OPENING NOTES ORIENTED TO NAME AND PLACE. NO SHORTNESS OF BREATH ON ROOM AIR. DENIED ANY PAIN. IV INFUSING WELL. SAFETY CHECKS DONE. CALL LIGHT WITHIN REACH.
[2022-03-27 08:17] VITALS: BP_SYST 154
[2022-03-27] MEDS: QUEtiapine FUMARATE 25 MG TABLET PO SCH (09:01)
[2022-03-27] MEDS: CITALOPRAM HYDROBROMIDE 20 MG TABLET PO SCH (09:01)
[2022-03-27] MEDS: ASPIRIN 81 MG TAB.CHEW PO SCH (09:01)
--- NOTE | 2022-03-27 09:20 | NUR ---
IV INSERTION PATIENT ACCIDENTALLY PULLED OUT HER IV. INSERTED A GAUGE 22 ON RIGHT WRIST. PATIENT TOOK ALL HER PO MEDICATIONS WELL.
[2022-03-27 11:39] VITALS: BP_SYST 148
--- NOTE | 2022-03-27 12:00 | NUR ---
ROUNDS PATIENT IS ASLEEP. SAFETY CHECKS DONE. CALL LIGHT WITHIN REACH.
[2022-03-27 14:00] VITALS: BP_SYST 148
--- NOTE | 2022-03-27 14:22 | NUR ---
REPORT REPORT GIVEN TO KARLENE OF [facility], .
--- NOTE | 2022-03-27 15:00 | NUR ---
PATIENT CONTINUES TO REFUSE TREATMENT SHE STATES SHE IS TOO TIRED TO GET OUT OF BED.
--- NOTE | 2022-03-27 15:11 | NUR ---
DISCHARGE PICKED UP BY [facility]IA [facility]URNEY. IV REMOVED; NO ACTIVE BLEEDING. PATIENT AND HER GRAND DAUGHTER REILLY ARE BOTH AWARE AND AGREED WITH TRANSFER.
== END 2022-03-27 15:11 | DRG 871 ==
LOC: SED 12:09 → SIC 15:47 → STU 03-21 18:23 → SMU 03-26 23:09
PROVIDERS: ADMIT Family Medicine; ATTEND Family Medicine
DX: A41.9 Sepsis, unspecified organism (principal); G93.41 Metabolic encephalopathy; J69.0 Pneumonitis due to inhalation of food and vomit; M62.82 Rhabdomyolysis; F03.90 Unspecified dementia, unspecified severity, without behavioral disturbance, psychotic disturbance, mood disturbance, and anxiety; F41.9 Anxiety disorder, unspecified; R65.20 Severe sepsis without septic shock; E86.0 Dehydration; Z20.822 Contact with and (suspected) exposure to COVID-19; Z79.899 Other long term (current) drug therapy; X31.XXXA Exposure to excessive natural cold, initial encounter
CPT/HCPCS: 36415; 70450-TC; 71045; 76376; 80048; 80053; 80307; 81000; 82140; 82550; 82553; 83605; 83690; 83735; 83880; 84484; 85025; 85610-TC; 85730-TC; 87040; 87081; 87086; 93005; 93306; 96361; 96365; 96367; 97112-GP; 97116-GP; 97530-GP; 99291; G0378; G0480; G0481; G0482; J0696; J2543; J3370; J7050; J7060